=== PATIENT | male | born 1955 | race Caucasian/White ===

== ENCOUNTER 2017-06-24 10:03 | Observation (INO) | payer OTHER ==
[2017-06-24] VITALS (10 sets, daily range): BP systolic 144–183; BP diastolic 61–91; PULSE 64–77; RESP 16–20; TEMP 96.7–98.9; O2SAT 95–99
[~2017-06-24] VITALS: Ht 172.7 cm; Wt 71.5 kg
[~2017-06-24 10:03] MED LIST: AMLO2.5T PO; FERR325T PO; METO25TA3 PO
[2017-06-24] MEDS ORDERED: FERR325T18 PO (10:33)
--- NOTE | 2017-06-24 10:48 | PD ---
HPI Chief Complaint: Abnormal Results Time Seen by Provider: 10:47 Travel History International Travel<30 days: No Contact w/Intl Traveler<30days: No Traveled to known affect area: No History of Present Illness HPI 62-year-old male came to the emergency room sent by his GI specialist Dr. Baker for abnormal blood test result. Patient says that he has been feeling generalized weakness and tiredness for past couple weeks. He went to his primary care physician who had ordered some blood test last week and hemoglobin was 7. Because of this he was sent to a GI specialist. Patient had upper endoscopy and a colonoscopy done last week. He was told that he had diverticulosis. No bleeding was noticed. He had a repeat blood test done yesterday and the results came back today is 6.9. Based on this resolved the GI specialist asked him to come to the emergency room to get blood transfusion. Patient denies any pain anywhere. Patient denies any lightheadedness or dizziness or shortness of breath. Vital signs were stable otherwise. [facility] Past Medical History Narrative Medical List of his past medical, surgical, social and family history reviewed from the nursing note. Cardiovascular Problems: Yes (HTN) Gout: Yes Hypertension: Yes Past Surgical History Other Surgery: Yes (ACHILLES) Social History Alcohol Use: Yes (DAILY) Tobacco Use: No Substance Use: No Allergies-Medications (Allergen,Severity, Reaction): Coded Allergies: codeine (Unverified Allergy, Unknown, UNKNOWN, 06/24/17) "LONG TIME AGO, DOESN'T REMEMBER REACTION" Comments List of his allergies reviewed from the nursing note. Reported Meds & Prescriptions Reported Meds & Active Scripts Active Metoprolol Tartrate 25 Mg Tab 25 Mg PO DAILY Amlodipine (Amlodipine Besylate) 2.5 Mg Tab 2.5 Mg PO DAILY Reported Ferrous Sulfate 325 Mg (65 Mg Iron) Tablet 325 Mg PO DAILY Narrative Medication List of his home medications reviewed from the nursing note. Review of Systems Except as stated in HPI: all other systems reviewed are Neg Physical Exam Narrative GENERAL: Awake, alert, no obvious distress SKIN: Focused skin assessment warm/dry. HEAD: Atraumatic. Normocephalic. EYES: Pupils equal and round. No scleral icterus. No injection or drainage. ENT: No nasal bleeding or discharge. Mucous membranes pink and moist. NECK: Trachea midline. No JVD. CARDIOVASCULAR: Regular rate and rhythm. No murmur appreciated. RESPIRATORY: No accessory muscle use. Clear to auscultation. Breath sounds equal bilaterally. GASTROINTESTINAL: Abdomen soft, non-tender, nondistended. Hepatic and splenic margins not palpable. MUSCULOSKELETAL: No obvious deformities. No clubbing. No cyanosis. No edema. NEUROLOGICAL: Awake and alert. No obvious cranial nerve deficits. Motor grossly within normal limits. Normal speech. PSYCHIATRIC: Appropriate mood and affect; insight and judgment normal. Data Data Last Documented VS Orders Orders Complete Blood Count With Diff (06/24/17 10:59) Basic Metabolic Panel (Bmp) (06/24/17 10:59) Prothrombin Time / Inr (Pt) (06/24/17 10:59) Type And Screen (06/24/17 10:59) Red Blood Cells (Rbc) (06/24/17 12:17) Blood Product Administration (06/24/17 12:17) Sodium Chlor 0.9% 250 Ml Inj (Ns 250 Ml (06/24/17 12:30) Place In Observation (06/24/17 ) Vital Signs (Adult) MARYSE.Q4H (06/24/17 12:40) Diet Heart Healthy (06/24/17 Lunch) Activity Oob With Assistance (06/24/17 12:40) Complete Blood Count With Diff (06/25/17 06:00) Alcohol Withdrawal Asmt-Ciwa Q4HX18 (06/24/17 12:41) Flumazenil Inj (Romazicon Inj) (06/24/17 12:45) Lorazepam (Ativan) (06/24/17 12:45) Lorazepam Inj (Ativan Inj) (06/24/17 12:45) Lorazepam (Ativan) (06/24/17 12:45) Lorazepam Inj (Ativan Inj) (06/24/17 12:45) Lorazepam Inj (Ativan Inj) (06/24/17 12:45) Lorazepam Inj (Ativan Inj) (06/24/17 12:45) Admit Order (Ed Use Only) (06/24/17 12:49) Labs Laboratory Tests Test 06/24/17 10:55 White Blood Count 4.5 TH/MM3 Red Blood Count 4.25 MIL/MM3 Hemoglobin 7.4 GM/DL Hematocrit 25.8 % Mean Corpuscular Volume 60.8 FL Mean Corpuscular Hemoglobin 17.4 PG Mean Corpuscular Hemoglobin Concent 28.6 % Red Cell Distribution Width 17.8 % Platelet Count 287 TH/MM3 Mean Platelet Volume 7.8 FL Neutrophils (%) (Auto) 65.6 % Lymphocytes (%) (Auto) 19.0 % Monocytes (%) (Auto) 9.3 % Eosinophils (%) (Auto) 4.6 % Basophils (%) (Auto) 1.5 % Neutrophils # (Auto) 2.9 TH/MM3 Lymphocytes # (Auto) 0.9 TH/MM3 Monocytes # (Auto) 0.4 TH/MM3 Eosinophils # (Auto) 0.2 TH/MM3 Basophils # (Auto) 0.1 TH/MM3 CBC Comment AUTO DIFF Differential Comment AUTO DIFF CONFIRMED Platelet Estimate NORMAL Platelet Morphology Comment NORMAL Ovalocytes 1+ Prothrombin Time 10.9 SEC Prothromb Time International Ratio 1.1 RATIO Blood Urea Nitrogen 7 MG/DL Creatinine 0.99 MG/DL Random Glucose 97 MG/DL Calcium Level 8.7 MG/DL Sodium Level 141 MEQ/L Potassium Level 4.3 MEQ/L Chloride Level 109 MEQ/L Carbon Dioxide Level 27.9 MEQ/L Anion Gap 4 MEQ/L Estimat Glomerular Filtration Rate 77 ML/MIN MDM Medical Decision Making Medical Screen Exam Complete: Yes Emergency Medical Condition: Yes Medical Record Reviewed: Yes Differential Diagnosis Anemia, symptomatic anemia Narrative Course 11:39 AM awaiting for blood test result. If his hemoglobin is indeed 7 or below then patient will require 2 units of blood transfusion. Dr. Baker had called earlier to let me know about this patient. She wants the patient to be admitted for observation. As per her there is no GI bleed based on the endoscopy and colonoscopy. Patient told me that he had something similar for years ago where he actually had seen blood in his stool and ended up getting endoscopy and colonoscopy as well as swallowing a capsule camera and the source of bleeding was never found. 12:50 PM blood test results are back and hemoglobin is 7.5. I discussed it again with Dr. Baker and she wanted to go ahead with the transfusion. 2 units of blood has been ordered. Patient will be admitted for observation. Critical Care Narrative Aggregate critical care time was 30 minutes. Time to perform other separately billable procedures was not included in the critical care time. My time did not include minutes spent treating any other patients simultaneously or on activities that did not directly contribute to the patient's treatment. The services I provided to this patient were to treat and/or prevent clinically significant deterioration that could result in: Symptomatic anemia, blood transfusion I provided critical care services requiring my management, as noted below: Chart data review, documentation time, medication orders and management, vital sign assessments/reviewing monitor data, ordering and reviewing lab tests, ordering and interpreting/reviewing x-rays and diagnostic studies, care of the patient and discussion of the patient with the admitting physicians. Procedures EKG Prior to Arrival: No Physician Communication Physician Communication Dr. Baker Diagnosis Primary Impression: Symptomatic anemia Admitting Information Admitting Physician Requests: Observation Scripts Pantoprazole (Pantoprazole) 40 Mg Tab 40 MG PO DAILY for gerd, #31 TAB Prov: Bipin Fisher MD PhD 06/25/17 Nagi Polanco MD June 24, 2017 10:48
[2017-06-24 11:22] LABS: AUTOMATED NEUTROPHIL # 2.9 TH/MM3 (1.8-7.7); BASOPHIL # 0.1 TH/MM3 (0-0.2); BASOPHIL % 1.5 % (0.0-2.0); EOSINOPHIL # 0.2 TH/MM3 (0-0.4); EOSINOPHIL % 4.6 % (0.0-4.0); HEMATOCRIT 25.8 % (39.0-51.0); HEMOGLOBIN 7.4 GM/DL (13.0-17.0); LYMPHOCYTE # 0.9 TH/MM3 (1.0-4.8); MEAN CELL VOLUME 60.8 FL (80.0-100.0); MEAN CORPUSCULAR HEMOGLOBIN 17.4 PG (27.0-34.0); MEAN PLATELET VOLUME 7.8 FL (7.0-11.0); MONO % 9.3 % (0.0-8.0); MONOCYTE # 0.4 TH/MM3 (0-0.9); NEUT % 65.6 % (16.0-70.0); PLATELET COUNT 287 TH/MM3 (150-450); RED BLOOD COUNT 4.25 MIL/MM3 (4.50-5.90); RED CELL DISTRIBUTION WIDTH 17.8 % (11.6-17.2); WHITE BLOOD COUNT 4.5 TH/MM3 (4.0-11.0)
[2017-06-24 11:41] LABS: MEAN CORPUSCULAR HGB CONC 28.6 % (32.0-36.0)
[2017-06-24 11:49] LABS: CALCIUM 8.7 MG/DL (8.5-10.1)
[2017-06-24 11:50] LABS: BICARBONATE 27.9 MEQ/L (21.0-32.0); INTERNATIONAL NORMALIZED RATIO 1.1 RATIO; PROTHROMBIN TIME - PATIENT 10.9 SEC (9.8-11.6)
[2017-06-24 11:53] LABS: CREATININE 0.99 MG/DL (0.60-1.30)
[2017-06-24 12:08] LABS: OVALOCYTES 1+ (NORMAL)
[2017-06-24] MEDS ORDERED: SODIUM CHLOR 0.9% 250 ML INJ 250 ML IV ONE (12:30)
[2017-06-24] MEDS ORDERED: LORazepam 1 MG TAB PO PRN (12:45)
[2017-06-24] MEDS ORDERED: LORazepam 2 MG/ML VIAL IV PUSH PRN ×4 (12:45)
[2017-06-24] MEDS ORDERED: LORazepam 2 MG TAB PO PRN (12:45)
[2017-06-24] MEDS ORDERED: FLUMAZENIL 0.5 MG/5 ML VIAL IV PUSH PRN (12:45)
--- NOTE | 2017-06-24 14:48 | HHI.HP ---
HPI Service [facility] Hospitalists Primary Care Physician Ryoal Villeda MD Admission Diagnosis Symptomatic anemia Chief Complaint: fatigue, sent by his GI provider for transfusion Travel History International Travel<30 Days: No Contact w/Intl Traveler <30 Da: No Traveled to Known Affected Are: No History of Present Illness 62-year-old male with HTN and hx of anemia came to the emergency room sent by his GI specialist Dr. Baker for abnormal blood test result. Patient says that he has been feeling generalized weakness and tiredness for past couple weeks. He went to his primary care physician who had ordered some blood test last week and hemoglobin was around 7 (prior Hb 13.28 July 2016). Because of this he was sent to a GI specialist. Patient reportedly had upper endoscopy and a colonoscopy done last week. He was told that he had diverticulosis. I spoke with Dr Baker who advised that no source of bleeding was found, but pt has large hiatal hernia. He is already scheduled for outpt pill endoscopy. No bleeding was noticed on studies. He had a repeat blood test done yesterday and the results came back today with Hb of 6.[address] Baekr advised pt to go to ER for transfusion since he was noting more fatigue. Patient denies any pain anywhere, specifically no CP. Patient denies any shortness of breath. Does note occasional lightheadedness if he stands too quickly, but that has been an ongoing problem chronically. Vital signs have been stable. Pt reportedly had similar anemia a few years ago and had negative w/u at that time as well (2015 apparently). Review of Systems Constitutional: COMPLAINS OF: Fatigue, DENIES: Diaphoretic episodes, Fever, Weight gain, Weight loss, Chills, Dizziness, Change in appetite, Night Sweats Endocrine: DENIES: Heat/cold intolerance, Polydipsia, Polyuria, Polyphagia Eyes: DENIES: Blurred vision, Diplopia, Eye inflammation, Eye pain, Vision loss , Photosensitivity, Double Vision Ears, nose, mouth, throat: DENIES: Tinnitus, Hearing loss, Vertigo, Nasal discharge, Oral lesions, Throat pain, Hoarseness, Ear Pain, Running Nose, Epistaxis, Sinus Pain, Toothache, Odynophagia Respiratory: DENIES: Apneas, Cough, Snoring, Wheezing, Hemoptysis, Sputum production, Shortness of breath Cardiovascular: DENIES: Chest pain, Palpitations, Syncope, Dyspnea on Exertion , PND, Lower Extremity Edema, Orthopnea, Claudication Gastrointestinal: COMPLAINS OF: GERD, Nausea, DENIES: Abdominal pain, Black stools, Bloody stools, BRB per rectum, Constipation, Diarrhea, Reflux, Vomiting , Difficulty Swallowing, Anorexia, See HPI Musculoskeletal: DENIES: Joint pain, Muscle aches, Stiffness, Joint Swelling, Back pain, Neck pain Integumentary: DENIES: Abnormal pigmentation, Nail changes, Pruritus, Rash Hematologic/lymphatic: DENIES: Bruising, Lymphadenopathy Immunologic/allergic: DENIES: Eczema, Urticaria Neurologic: DENIES: Abnormal gait, Headache, Localized weakness, Paresthesias, Seizures, Speech Problems, Tremor, Poor Balance Psychiatric: DENIES: Anxiety, Confusion, Mood changes, Depression, Hallucinations, Agitation, Suicidal Ideation, Homicidal Ideation, Delusions, History of Bipolar, History of Schizophrenia Past Family Social History Past Medical History HTN Anemia Past Surgical History Achilles Tendon rpr EGD and colonoscopy x 3...most recent reportedly last week Reported Medications Metoprolol Tartrate 25 Mg Tab 25 Mg PO DAILY Amlodipine (Amlodipine Besylate) 2.5 Mg Tab 2.5 Mg PO DAILY Ferrous Sulfate 325 Mg (65 Mg Iron) Tablet 325 Mg PO DAILY Prilosec 20 mg daily Allergies: Coded Allergies: codeine (Unverified Allergy, Unknown, UNKNOWN, 06/24/17) "LONG TIME AGO, DOESN'T REMEMBER REACTION" Family History Father of complications of an aneurysm, patient is not sure if it was cerebral or aortic. Mother is alive but "does not take care of herself". She has diabetes, hypertension and hyperlipidemia No blood dyscrasias or recurrent GI bleeding illness in his family. Social History Drinks 3-4 beers/day, no hard liquor. Has never experienced any withdrawal symptoms even though he is gone 3-4 days at a time without any alcohol on several occasions. No tobacco or illicits for 14 years Worked previously with [employer] in [place] Has been in the area for 3 years. Physical Exam Vital Signs Vital Signs Date Time Temp Pulse Resp B/P (MAP) Pulse Ox O2 Delivery O2 Flow Rate FiO2 06/24/17 13:45 98.3 69 17 148/86 (106) 95 06/24/17 13:34 5/5/18 13:18 72 16 144/61 (88) 98 06/24/17 10:18 98.9 76 18 147/69 (95) 99 Physical Exam GENERAL: This is a well-nourished, obese, well-developed patient, in no apparent distress. Pleasant, jovial. SKIN: No rashes, ecchymoses or lesions. Cool and dry. HEAD: Atraumatic. Normocephalic. No temporal or scalp tenderness. EYES: Pupils equal round and reactive. Extraocular motions intact. No scleral icterus. No injection or drainage. ENT: Nose without bleeding, purulent drainage or septal hematoma. No oropharyngeal petechiae. Airway patent. NECK: Trachea midline. No JVD or lymphadenopathy. Supple, nontender, no meningeal signs. CARDIOVASCULAR: Regular rate and rhythm without murmurs, gallops, or rubs. RESPIRATORY: Clear to auscultation. Breath sounds equal bilaterally. No wheezes , rales, or rhonchi. GASTROINTESTINAL: Abdomen soft, mildly distended, minimal tenderness to palpation globally. No hepato-splenomegaly, or palpable masses. No guarding. Bowel sounds normal. MUSCULOSKELETAL: Extremities without clubbing, cyanosis, or edema. No joint tenderness, effusion, or edema noted. No calf tenderness. NEUROLOGICAL: Awake and alert. Cranial nerves II through XII intact. Motor and sensory grossly within normal limits. Five out of 5 muscle strength in all muscle groups. Normal speech. Laboratory Laboratory Tests Test 06/24/17 10:55 White Blood Count 4.5 Red Blood Count 4.25 Hemoglobin 7.4 Hematocrit 25.8 Mean Corpuscular Volume 60.8 Mean Corpuscular Hemoglobin 17.4 Mean Corpuscular Hemoglobin Concent 28.6 Red Cell Distribution Width 17.8 Platelet Count 287 Mean Platelet Volume 7.8 Neutrophils (%) (Auto) 65.6 Lymphocytes (%) (Auto) 19.0 Monocytes (%) (Auto) 9.3 Eosinophils (%) (Auto) 4.6 Basophils (%) (Auto) 1.5 Neutrophils # (Auto) 2.9 Lymphocytes # (Auto) 0.9 Monocytes # (Auto) 0.4 Eosinophils # (Auto) 0.2 Basophils # (Auto) 0.1 CBC Comment AUTO DIFF Differential Comment AUTO DIFF CONFIRMED Platelet Estimate NORMAL Platelet Morphology Comment NORMAL Ovalocytes 1+ Prothrombin Time 10.9 Prothromb Time International Ratio 1.1 Blood Urea Nitrogen 7 Creatinine 0.99 Random Glucose 97 Calcium Level 8.7 Sodium Level 141 Potassium Level 4.3 Chloride Level 109 Carbon Dioxide Level 27.9 Anion Gap 4 Estimat Glomerular Filtration Rate 77 Result Diagram: 06/24/17 1055 06/24/17 1055 Caprini VTE Risk Assessment Caprini VTE Risk Assessment: No/Low Risk (score <= 1) Caprini Risk Assessment Model Point Value = 1 Point Value = 2 Point Value = 3 Point Value = 5 Age 41-60 Minor surgery BMI > 25 kg/m2 Swollen legs Varicose veins or History of unexplained or recurrent spontaneous Oral contraceptives or hormone replacement Sepsis (< 1 month) Serious lung disease, including pneumonia (< 1 month) Abnormal pulmonary function Acute myocardial infarction Congestive heart failure (< 1 month) History of inflammatory bowel disease Medical patient at bed rest Age 61-74 Arthroscopic surgery Major open surgery (> 45 min) Laparoscopic surgery (> 45 min) Malignancy Confined to bed (> 72 hours) Immobilizing plaster cast Central venous access Age >= 75 History of VTE Family history of VTE Factor V Leiden Prothrombin [id number] Lupus anticoagulant Anticardiolipin antibodies Elevated serum homocysteine Heparin-induced thrombocytopenia Other congenital or acquired thrombophilia Stroke (< 1 month) Elective arthroplasty Hip, pelvis, or leg fracture Acute spinal cord injury (< 1 month) Prophylaxis Regimen Total Risk Factor Score Risk Level Prophylaxis Regimen 0-1 Low Early ambulation 2 Moderate Order ONE of the following: *Sequential Compression Device (SCD) *Heparin 5000 units SQ BID 3-4 Higher Order ONE of the following medications: *Heparin 5000 units SQ TID *Enoxaparin/Lovenox 40 mg SQ daily (WT < 150 kg, CrCl > 30 mL/min) *Enoxaparin/Lovenox 30 mg SQ daily (WT < 150 kg, CrCl > 10-29 mL/min) *Enoxaparin/Lovenox 30 mg SQ BID (WT < 150 kg, CrCl > 30 mL/min) AND/OR *Sequential Compression Device (SCD) 5 or more Highest Order ONE of the following medications: *Heparin 5000 units SQ TID (Preferred with Epidurals) *Enoxaparin/Lovenox 40 mg SQ daily (WT < 150 kg, CrCl > 30 mL/min) *Enoxaparin/Lovenox 30 mg SQ daily (WT < 150 kg, CrCl > 10-29 mL/min) *Enoxaparin/Lovenox 30 mg SQ BID (WT < 150 kg, CrCl > 30 mL/min) AND *Sequential Compression Device (SCD) Assessment and Plan Problem List: (1) Symptomatic anemia ICD Codes: D64.9 - Anemia, unspecified Status: Acute Plan: Only mildly symptomatic despite relatively low Hb values which likely speaks to the chronicity of his anemia. Will transfuse 2 units of blood and hopefully d/c tomorrow AM. I d/w Dr Baker. Will not consult GI at this point unless specific GI bleeding noted or pt stability changes. Provide PPI given GERD history. (2) Hypertension ICD Codes: I10 - Essential (primary) hypertension Status: Chronic Plan: continue meds as BP permits (3) Alcohol use ICD Codes: Z78.9 - Other specified health status Status: Chronic Plan: will institute CIWA protocol Encouraged pt to avoid Etoh as this may increase his bleeding risk among other negative health effects Code Status full Discussed Condition With Patient, his , Dr. Baker and ER provider Problem Qualifiers (1) Hypertension: Qualified Codes: I10 - Essential (primary) hypertension Bipin Fisher MD PhD June 24, 2017 14:48
[2017-06-24] MEDS: METOPROLOL TARTRATE 25 MG TAB PO SCH (18:13)
[2017-06-24] MEDS: PANTOPRAZOLE SOD 40 MG DELAYED RELEASE TAB PO SCH (18:13)
[2017-06-24] MEDS ORDERED: PILL SPLITTER OTHER PRN (18:15)
[2017-06-24] MEDS ORDERED: FUROSEMIDE 20 MG TAB PO ONE (18:15)
[2017-06-24 21:56] LABS: HEMATOCRIT 33.5 % (39.0-51.0)
[2017-06-25] VITALS: BP 144/77; PULSE 65; RESP 20; TEMP 96.6; O2SAT 96
--- NOTE | 2017-06-25 06:47 | HHI.PR ---
Subjective Remarks Patient reports he had fragmented sleep overnight but overall feels well. He was able to get up and ambulate to the restroom independently without trouble and without lightheadedness. Desires discharge home. Objective Vitals Vital Signs Date Time Temp Pulse Resp B/P (MAP) Pulse Ox O2 Delivery O2 Flow Rate FiO2 06/25/17 00:00 96.6 65 20 144/77 (99) 96 06/24/17 20:00 96.7 64 20 162/77 (105) 96 06/24/17 17:58 98.6 75 18 183/91 99 06/24/17 17:40 98.7 74 18 163/82 99 06/24/17 16:00 98.7 73 19 155/86 (109) 98 06/24/17 15:22 98.5 77 18 161/78 97 06/24/17 15:10 98.4 77 18 168/86 99 06/24/17 15:05 98.4 77 18 168/86 99 06/24/17 13:45 98.3 69 17 148/86 (106) 95 06/24/17 13:34 06/24/17 13:18 72 16 144/61 (88) 98 06/24/17 10:18 98.9 76 18 147/69 (95) 99 GENERAL: Sleeping, arouses to voice. Cooperative with exam. Pleasant. No acute distress SKIN: Warm and dry. HEAD: Normocephalic. EYES: No scleral icterus. No injection or drainage. NECK: Supple, trachea midline. No JVD or lymphadenopathy. CARDIOVASCULAR: Regular rate and rhythm without murmurs, gallops, or rubs. RESPIRATORY: Breath sounds equal bilaterally. No accessory muscle use. GASTROINTESTINAL: Abdomen soft, non-tender, slightly distended. Bowel sounds normal MUSCULOSKELETAL: No cyanosis, or edema. Moves all extremities well BACK: No CVA tenderness. Result Diagram: 06/24/17 2130 06/24/17 1055 Urinary Catheter: No Vascular Central Line Catheter: No A/P Problem List: (1) Symptomatic anemia ICD Codes: D64.9 - Anemia, unspecified Status: Acute Plan: Only mildly symptomatic despite relatively low Hb values which likely speaks to the chronicity of his anemia. He received 2 units of packed red cells and hemoglobin came up to 10. Vital signs been stable. We will discharge home today. I d/w Dr Baker. Will not consult GI at this point unless specific GI bleeding noted or pt stability changes. Provide PPI given GERD history. (2) Hypertension ICD Codes: I10 - Essential (primary) hypertension Status: Chronic Plan: continue meds as BP permits (3) Alcohol use ICD Codes: Z78.9 - Other specified health status Status: Chronic Plan: [place] protocol was instituted but patient had no signs of withdrawal during brief hospital stay. Encouraged pt to avoid Etoh as this may increase his bleeding risk among other negative health effects Problem Qualifiers (1) Hypertension: Qualified Codes: I10 - Essential (primary) hypertension Bipin Fisher MD PhD June 25, 2017 06:47
[2017-06-25] MEDS ORDERED: PANT40TA3 PO (06:49)
[2017-06-25 07:30] VITALS: BP 157/90; PULSE 59; RESP 18; TEMP 97.5; O2SAT 98
[2017-06-25] MEDS: METOPROLOL TARTRATE 25 MG TAB PO SCH (07:41)
[2017-06-25] MEDS: PANTOPRAZOLE SOD 40 MG DELAYED RELEASE TAB PO SCH (07:41)
[2017-06-25 08:41] LABS: AUTOMATED NEUTROPHIL # 3.2 TH/MM3 (1.8-7.7); BASOPHIL # 0.1 TH/MM3 (0-0.2); BASOPHIL % 1.5 % (0.0-2.0); EOSINOPHIL # 0.2 TH/MM3 (0-0.4); EOSINOPHIL % 4.5 % (0.0-4.0); HEMATOCRIT 31.5 % (39.0-51.0); HEMOGLOBIN 9.7 GM/DL (13.0-17.0); LYMPH % 21.9 % (9.0-44.0); LYMPHOCYTE # 1.1 TH/MM3 (1.0-4.8); MEAN CELL VOLUME 66.6 FL (80.0-100.0); MEAN CORPUSCULAR HEMOGLOBIN 20.5 PG (27.0-34.0); MEAN CORPUSCULAR HGB CONC 30.8 % (32.0-36.0); MONO % 7.9 % (0.0-8.0); MONOCYTE # 0.4 TH/MM3 (0-0.9); NEUT % 64.2 % (16.0-70.0); PLATELET COUNT 273 TH/MM3 (150-450); RED BLOOD COUNT 4.74 MIL/MM3 (4.50-5.90); RED CELL DISTRIBUTION WIDTH 24.6 % (11.6-17.2); WHITE BLOOD COUNT 5.1 TH/MM3 (4.0-11.0)
[2017-06-25] MEDS ORDERED: amLODIPine BESYLATE 5 MG TAB PO SCH (09:00)
[2017-06-25] MEDS ORDERED: FERROUS SULFATE 325 MG (65 MG ELEMENTAL IRON) TAB PO SCH (09:00)
[2017-06-25 09:23] LABS: OVALOCYTES 1+ (NORMAL)
== END 2017-06-25 09:42 | disposition home or self-care (01) ==
LOC: PHED 10:03 → PHEDA 12:51 → PH3A 13:34
PROVIDERS: ADMIT Family Medicine; ATTEND Family Medicine
DX: D64.9 Anemia, unspecified (principal); R53.1 Weakness; K57.90 Diverticulosis of intestine, part unspecified, without perforation or abscess without bleeding; I10 Essential (primary) hypertension; M10.9 Gout, unspecified; R42 Dizziness and giddiness; Z83.3 Family history of diabetes mellitus; Z82.49 Family history of ischemic heart disease and other diseases of the circulatory system
CPT/HCPCS: 36430; 80048; 85014; 85018; 85025; 85610; 86850; 86900; 86901; 86920; 96360; 96361; 99291; G0378; J7050; P9016